=== PATIENT | female | born 1975 | race Caucasian/White ===

== ENCOUNTER 2017-12-29 19:09 | Inpatient (IN) | payer OTHER ==
[2017-12-29 21:54] LABS: Hematocrit 34.7 % (30.3-42.9); Hemoglobin 11.8 gm/dl (10.1-14.3); Mean Corpuscular HGB Conc 34 % (30-34); Mean Corpuscular Hemoglobin 29 pg (28-32); Mean Corpuscular Volume 84 fl (79-97); Platelet Count 157 K/mm3 (140-440); Red Blood Count 4.11 M/mm3 (3.65-5.03); Red Cell Distribution Width 16.1 % (13.2-15.2)
[2017-12-29 22:11] LABS: BUN/Creatinine Ratio 17; Blood Urea Nitrogen 12 mg/dL (7-17); Calcium 8.8 mg/dL (8.4-10.2); Hemolysis Index 1
[2017-12-29] MEDS: LACTATED RINGERS 1,000 ML IV SCH (22:18)
[2017-12-29] MEDS: BENADRYL IV SCH (22:19)
[2017-12-30] MEDS: LACTATED RINGERS 1,000 ML IV SCH ×2 (05:47→21:09)
[2017-12-30] MEDS: BENADRYL IV SCH ×3 (06:03→21:10)
[2017-12-30] MEDS ORDERED: HumuLIN R SUB-Q SCH ×2 (07:30→15:00)
[2017-12-30] MEDS ORDERED: TYLENOL PO PRN (09:06)
[2017-12-30] MEDS ORDERED: AMBIEN PO PRN (09:06)
[2017-12-30] MEDS ORDERED: COLACE PO PRN (09:06)
--- NOTE | 2017-12-30 09:25 | History and Physical Report ---
History of Present Illness Date of examination: 12/30/17 Date of admission: 12/29/17 19:09 Chief complaint: SIUP at 36 weeks and 4 days with pre-gest DM and uncontrolled glucose. History of present illness: Patient is a 42 years old , LMP 04/18/17, EDC 01/23/18 at 36 weeks and 4 days with a history of pre-gestational diabetes type 2 who was admitted for glucose control. She started PNC at [facility] and has been on max dose of glyburide. She was transferred to [facility] last week at 35+ weeks gestation due to uncontrolled glucose on the glyburide. Her fasting ran between 110-140's. Last week, she was given insulin but she has not started taking it. She has not been monitoring her glucose for over 9 days. She was seen at [facility] for the first time yesterday. sonogram showed an SIRIA of 22.4 , BPP 8/8, EFW 4072 gms (9 lbs). She was sent in for admission for glucose control. She reported occasional contractions. She reported good movement. tracing has been CAT 1. Cervix: closed/long/post. Past History Past Medical History: diabetes, other (anemia) Past Surgical History: no surgical history INTERVENTION NURSE History: fibroids, herpes Family/Genetic History: none Social history: no significant social history - Obstetrical History Expected Date of Delivery: 01/23/18 Actual Gestation: 36 Week(s) 4 Day(s) : 6 Para: 4 Spontaneous Abortions: 1 Number of Living Children: 4 Medications and Allergies Allergies Allergy/AdvReac Type Severity Reaction Status Date / Time No Known Allergies Allergy Verified 12/29/17 21:40 Active Meds: Active Medications Diphenhydramine HCl (Benadryl) 25 mg IV Q6H BRYAN Last Admin: 12/30/17 06:03 Dose: Not Given Lactated Ringer's (Lactated Ringers) 1,000 mls @ 125 mls/hr IV DIRECT BRYAN Last Admin: 12/30/17 05:47 Dose: 125 mls/hr Insulin Human NPH (Humulin N) 20 unit SUB-Q AC [facility] Last Admin: 12/30/17 08:11 Dose: 20 unit Insulin Human Regular (Humulin R) 10 units SUB-Q AC [facility] Last Admin: 12/30/17 08:10 Dose: 10 units - Vital Signs Vital signs: Vital Signs Temp 97.8 F 12/29/17 20:43 Temp Pulse Resp BP Pulse Ox 97.7 F 47 L 18 158/76 12/30/17 07:40 12/30/17 07:45 12/30/17 07:40 12/30/17 07:45 - Physical Exam Cardiovascular: Normal S1, Normal S2 Lungs: Positive: Clear to auscultation Vulva: both: normal Deep Tendon Reflex Grade: Normal +2 - Obstetrical FHR: category 1 Uterine Contraction Monitor Mode: External Cervical Dilatation: 0 Cervical Effacement Percentage: 0 station: -3 Uterine Contraction Pattern: Absent Results Result Diagrams: 12/29/17 20:20 12/29/17 20:20 Abnormal lab results 12/29/17 12/29/17 12/29/17 Range/Units 20:20 20:20 20:20 RDW 16.1 H (13.2-15.2) % Sodium 135 L (137-145) mmol/L Carbon Dioxide 18 L (22-30) mmol/L Glucose 177 H (65-100) mg/dL POC Glucose (70-105) TSH 6.320 H (0.270-4.200) mlU/mL 12/29/17 Range/Units 20:28 RDW (13.2-15.2) % Sodium (137-145) mmol/L Carbon Dioxide (22-30) mmol/L Glucose (65-100) mg/dL POC Glucose 176 H (70-105) TSH (0.270-4.200) mlU/mL All other labs normal. Assessment and Plan - Patient Problems (1) 36 weeks gestation of Current Visit: Yes Status: Acute (2) Diabetes Current Visit: Yes Status: Acute Qualifiers: Diabetes mellitus type: type 2 Plan to address problem: Admit to labor floor. Routine admitting labs. TSH and free T4. 24-hr urine for protein and Cr clearance. EKG FS fasting and 2-hr PP. Start ADA diet with 2200 calories. (3) Macrosomia Current Visit: Yes Status: Acute Plan to address problem: EFW 9 lbs. (4) Leiomyoma in , uterine, antepartum Current Visit: Yes Status: Acute Plan to address problem: Myoma measures 3.2 x 3.7 cm (anterior). (5) Uncontrolled blood glucose Current Visit: Yes Status: Acute Plan to address problem: Patient has been skipping meals. Random glucose was 78 last night. Will do FS fasting and 2-hr PP. Will start with insulin regimen with half calculated dose and increase it when pt starts eating her ADA diet. Will start sliding scale if needed. [facility] saw pt yesterday. Nutrition consult. (6) Itching Current Visit: Yes Status: Acute Plan to address problem: Rule out cholestasis of . Bile acid panel ordered. Benadryl for itching. (7) Herpes genitalia Current Visit: Yes Status: Acute Plan to address problem: Will start valtrex for prophylaxis.
[2017-12-30] MEDS ORDERED: PRENATAL VITAMIN PO SCH (10:00)
[2017-12-30 13:57] LABS: Uric Acid 5.1 mg/dL (3.5-7.6)
[2017-12-30] MEDS ORDERED: D50W (25GM) Syringe IV PRN (14:02)
--- NOTE | 2017-12-30 14:14 | Event Note ---
Date: 12/30/17 Assumed care of above. Patient seen, examined and chart reviewed. She was seen at [facility] for the first time yesterday. sonogram showed an SIRIA of 22.4 , BPP 8/8, EFW 4072 gms (9 lbs). She was sent in for admission for glucose control. She reported occasional contractions. She reported good movement. tracing has been CAT 1. No S/S of Pre-E at this time. Issues: -42 y/o at 36+4 wks -Pregestational DM - Poorly controlled -Non compliance - ?financial issues -Increasing BP - now ~ 150's/90's -Generalised Pruritis - ??Cholestasis -Elevated TSH and normal FT4 - ?Subclinical hypothyr - macrosomia - EFW 9 lbs or ~ 4000 gms -Mildly elevated transaminases -Cervix exam is 40/-4 -Cephalic confirmed by bedside sono -Armenian speaker only In view of above including non-compliance, plan at this point is to proceed with delivery. Reviewed with Dr. Manrique of [facility] Will start Mag and anti-HTN if BP enters severe range or symptoms arise
[2017-12-30 14:26] LABS: Hematocrit 36.2 % (30.3-42.9); Hemoglobin 11.8 gm/dl (10.1-14.3); Mean Corpuscular HGB Conc 33 % (30-34); Mean Corpuscular Hemoglobin 28 pg (28-32); Mean Corpuscular Volume 86 fl (79-97); Platelet Count 151 K/mm3 (140-440); Red Blood Count 4.23 M/mm3 (3.65-5.03); Red Cell Distribution Width 16.3 % (13.2-15.2)
[2017-12-30] MEDS ORDERED: ePHEDrine SULFATE IV PRN (14:26)
[2017-12-30] MEDS ORDERED: BRETHINE IVP PRN (14:26)
[2017-12-30] MEDS ORDERED: XYLOCAINE 2% INFILTRATI ONE (14:26)
[2017-12-30] MEDS ORDERED: MINERAL OIL PO PRN (14:26)
[2017-12-30] MEDS ORDERED: BRETHINE SUB-Q PRN (14:26)
[2017-12-30] MEDS ORDERED: ZOFRAN IV PRN (14:36)
[2017-12-30] MEDS ORDERED: PITOCin/NS 20 UNIT/1000ML DRIP 20 UNITS/1,000 ML BAG IV SCH (15:00)
[2017-12-30] MEDS ORDERED: PITOCin/NS 30 UNIT/500ML 30 UNITS/500 ML BAG IV SCH (15:00)
[2017-12-30 16:39] LABS: Bilirubin,Urine NEG (Negative); Blood,Urine MOD (Negative); Color,Urine Amber (Yellow); Mucus,Urine FEW /HPF; Protein,Urine <15 mg/dL mg/dL (Negative)
[2017-12-30] MEDS: PITOCin/NS 30 UNIT/500ML 30 UNITS/500 ML BAG IV SCH ×2 (17:50→18:28)
[2017-12-30] MEDS: SUBLIMAZE IV PRN (19:52)
[2017-12-31] MEDS: SUBLIMAZE IV PRN (03:29)
[2017-12-31] MEDS: LACTATED RINGERS 1,000 ML IV SCH ×3 (04:36→11:32)
--- NOTE | 2017-12-31 08:45 | Progress Note ---
Assessment and Plan - Patient Problems (1) 36 weeks gestation of Current Visit: Yes Status: Acute (2) Diabetes Current Visit: Yes Status: Acute Qualifiers: Diabetes mellitus type: type 2 Plan to address problem: Continue glucose mionitoring. Sliding scale. (3) Macrosomia Current Visit: Yes Status: Acute Plan to address problem: EFW 9 lbs. (4) Leiomyoma in , uterine, antepartum Current Visit: Yes Status: Acute Plan to address problem: Myoma measures 3.2 x 3.7 cm (anterior). (5) Uncontrolled blood glucose Current Visit: Yes Status: Acute Plan to address problem: Continue glucose monitoring and sliding scale. (6) Itching Current Visit: Yes Status: Acute Plan to address problem: Bile acid panel ordered. Result pending. Benadryl for itching. (7) Herpes genitalia Current Visit: Yes Status: Acute Plan to address problem: Will start valtrex for prophylaxis. Subjective - Subjective Date of service: 12/31/17 Principal diagnosis: SIUP at 36 weeks and 5 days with uncontroled diabetes, pre- eclampsia Interval history: Patient is a 42 years old , LMP 04/18/17, EDC 01/23/18 who is at 36 weeks and 5 days with a history of pre-gestational diabetes type 2 who was admitted for glucose control. She started PNC at [facility] and has been on max dose of glyburide. She was transferred to [facility] last week at 35+ weeks gestation due to uncontrolled glucose on the glyburide. Her fasting ran between 110-140's. Last week, she was given insulin but she has not started taking it. She has not been monitoring her glucose for over 9 days. She was seen at [facility] for the first time the day prior to her admission. Sonogram showed an SIRIA of 22.4, BPP 8/8, EFW 4072 gms (9 lbs). She was sent in for admission for glucose control. She reported occasional contractions. She reported good movement. tracing has been CAT 1. On admission, her cervix: closed/long/post. Her BP started to become elevated to the 150's/80's. Toxemia labs showed abnormalities. In light of the above findings, the patient was given magnesium sulfate and induced with pitocin. This AM, she reports feeling mild contractions. tracing is CAT1. Cervix: 4 cm/50-60's/floating. VTX presentation was confirmed with bedside ultrasound by the previous team. Objective - Vital Signs Vital Signs: Vital Signs - 12hr 12/30/17 12/30/17 12/30/17 20:43 20:48 20:49 Temperature Pulse Rate 48 L 68 Respiratory Rate Blood Pressure O2 Sat by Pulse 90 92 55 L Oximetry 12/30/17 12/30/17 12/30/17 21:06 21:58 21:59 Temperature 97.1 F L Pulse Rate 46 L 52 L 48 L Respiratory 20 Rate Blood Pressure 148/66 130/74 O2 Sat by Pulse 99 Oximetry 12/30/17 12/30/17 12/30/17 22:03 22:08 22:13 Temperature Pulse Rate 47 L 51 L 57 L Respiratory Rate Blood Pressure O2 Sat by Pulse 97 96 97 Oximetry 12/30/17 12/30/17 12/30/17 22:18 22:23 22:28 Temperature Pulse Rate 50 L 53 L 49 L Respiratory Rate Blood Pressure O2 Sat by Pulse 95 96 94 Oximetry 12/30/17 12/30/17 12/30/17 22:30 22:33 22:38 Temperature Pulse Rate 54 L 46 L 47 L Respiratory Rate Blood Pressure O2 Sat by Pulse 94 95 95 Oximetry 12/30/17 12/30/17 12/30/17 22:43 22:48 22:49 Temperature Pulse Rate 51 L 62 60 Respiratory Rate Blood Pressure O2 Sat by Pulse 95 95 86 Oximetry 12/30/17 12/31/17 12/31/17 23:01 02:22 02:28 Temperature 97.1 F L Pulse Rate 51 L 46 L Respiratory 22 Rate Blood Pressure 148/67 O2 Sat by Pulse 98 Oximetry 12/31/17 12/31/17 12/31/17 02:59 03:29 03:34 Temperature Pulse Rate 73 50 L Respiratory 20 Rate Blood Pressure 128/75 O2 Sat by Pulse 99 Oximetry 12/31/17 12/31/17 12/31/17 03:59 04:00 04:59 Temperature Pulse Rate 51 L 48 L Respiratory 18 Rate Blood Pressure 119/57 125/66 O2 Sat by Pulse Oximetry 12/31/17 12/31/17 12/31/17 06:01 06:21 06:26 Temperature Pulse Rate 46 L 55 L 57 L Respiratory Rate Blood Pressure 144/70 O2 Sat by Pulse 98 98 Oximetry 12/31/17 12/31/17 12/31/17 06:31 06:36 06:41 Temperature Pulse Rate 56 L 50 L 46 L Respiratory Rate Blood Pressure O2 Sat by Pulse 98 98 98 Oximetry 12/31/17 12/31/17 12/31/17 06:46 06:51 06:56 Temperature Pulse Rate 52 L 47 L 48 L Respiratory Rate Blood Pressure O2 Sat by Pulse 98 97 96 Oximetry 12/31/17 12/31/17 12/31/17 07:01 07:06 07:11 Temperature Pulse Rate 52 L 50 L 47 L Respiratory Rate Blood Pressure 121/58 O2 Sat by Pulse 96 96 96 Oximetry 12/31/17 12/31/17 12/31/17 07:16 07:21 07:22 Temperature 97.6 F Pulse Rate 50 L 59 L Respiratory Rate Blood Pressure O2 Sat by Pulse 96 96 Oximetry 12/31/17 12/31/17 07:26 08:00 Temperature Pulse Rate 64 47 L Respiratory Rate Blood Pressure 145/74 O2 Sat by Pulse 97 Oximetry - Exam Cardiovascular: Normal S1, Normal S2 Lungs: Clear to auscultation Vulva: both: normal FHR: category 1 Uterine Contraction Monitor Mode: External Cervical Dilatation: 4 Cervical Effacement Percentage: 50 station: -4 Uterine Contraction Pattern: Irregular Deep Tendon Reflex Grade: Normal +2 - Labs Labs: Abnormal Labs 12/29/17 12/29/17 12/29/17 20:20 20:20 20:20 RDW 16.1 H Sodium 135 L Carbon Dioxide 18 L Creatinine Glucose 177 H POC Glucose AST ALT Lactate Dehydrogenase TSH 6.320 H 12/29/17 12/30/17 12/30/17 20:28 10:49 12:25 RDW Sodium Carbon Dioxide Creatinine Glucose POC Glucose 176 H 123 H AST ALT 63 H Lactate Dehydrogenase TSH 12/30/17 12/30/17 12/30/17 12:25 14:02 14:21 RDW 16.3 H Sodium Carbon Dioxide Creatinine 0.6 L Glucose POC Glucose 116 H AST 78 H ALT Lactate Dehydrogenase 321 H TSH 12/31/17 01:00 RDW Sodium Carbon Dioxide Creatinine Glucose POC Glucose 67 L AST ALT Lactate Dehydrogenase TSH Laboratory Results - last 24 hr 12/30/17 12/30/17 12/30/17 10:49 12:25 12:25 WBC RBC Hgb Hct MCV MCH MCHC RDW Plt Count Creatinine 0.6 L Estimated GFR > 60 POC Glucose 123 H Uric Acid 5.1 AST 78 H ALT 63 H Lactate Dehydrogenase 321 H Urine Color Urine Turbidity Urine pH Ur Specific [place] Urine Protein Urine Glucose (UA) Urine Ketones Urine Blood Urine Nitrite Urine Bilirubin Urine Urobilinogen Ur Leukocyte Esterase Urine WBC (Auto) Urine RBC (Auto) U Epithel Cells (Auto) Urine Mucus Blood Type Antibody Screen 12/30/17 12/30/17 12/30/17 14:02 14:21 16:10 WBC 6.0 RBC 4.23 Hgb 11.8 Hct 36.2 MCV 86 MCH 28 MCHC 33 RDW 16.3 H Plt Count 151 Creatinine Estimated GFR POC Glucose 116 H Uric Acid AST ALT Lactate Dehydrogenase Urine Color Dayna Urine Turbidity Clear Urine pH 6.0 Ur Specific [place] 1.010 Urine Protein <15 mg/dl Urine Glucose (UA) Neg Urine Ketones Tr Urine Blood Mod Urine Nitrite Pos Urine Bilirubin Neg Urine Urobilinogen 4.0 Ur Leukocyte Esterase Neg Urine WBC (Auto) 4.0 Urine RBC (Auto) 5.0 U Epithel Cells (Auto) 2.0 Urine Mucus Few Blood Type Antibody Screen 12/30/17 12/30/17 12/31/17 16:20 18:36 01:00 WBC RBC Hgb Hct MCV MCH MCHC RDW Plt Count Creatinine Estimated GFR POC Glucose 91 67 L Uric Acid AST ALT Lactate Dehydrogenase Urine Color Urine Turbidity Urine pH Ur Specific [place] Urine Protein Urine Glucose (UA) Urine Ketones Urine Blood Urine Nitrite Urine Bilirubin Urine Urobilinogen Ur Leukocyte Esterase Urine WBC (Auto) Urine RBC (Auto) U Epithel Cells (Auto) Urine Mucus Blood Type O POSITIVE Antibody Screen Negative 12/31/17 06:51 WBC RBC Hgb Hct MCV MCH MCHC RDW Plt Count Creatinine Estimated GFR POC Glucose 85 Uric Acid AST ALT Lactate Dehydrogenase Urine Color Urine Turbidity Urine pH Ur Specific [place] Urine Protein Urine Glucose (UA) Urine Ketones Urine Blood Urine Nitrite Urine Bilirubin Urine Urobilinogen Ur Leukocyte Esterase Urine WBC (Auto) Urine RBC (Auto) U Epithel Cells (Auto) Urine Mucus Blood Type Antibody Screen - Results US- obstetric: report reviewed
[2017-12-31] MEDS: BENADRYL IV SCH ×2 (10:00→16:00)
--- NOTE | 2017-12-31 10:24 | Progress Note ---
Assessment and Plan A:IUP @ 36 5/7 Weeks Category I Tracing Active Labor DM II (uncontrolled) GBS Negative Maternal obesity P: AROM Internals X 2 Continue Pitocin Augmentation Sliding Scale for DM Management Subjective - Subjective Date of service: 12/31/17 Principal diagnosis: SIUP at 36 weeks and 5 days with uncontroled diabetes, pre- eclampsia Patient reports: movement normal, contractions Objective - Vital Signs Vital Signs: Vital Signs - 12hr 12/30/17 12/30/17 12/30/17 22:23 22:28 22:30 Temperature Pulse Rate 53 L 49 L 54 L Respiratory Rate Blood Pressure O2 Sat by Pulse 96 94 94 Oximetry 12/30/17 12/30/17 12/30/17 22:33 22:38 22:43 Temperature Pulse Rate 46 L 47 L 51 L Respiratory Rate Blood Pressure O2 Sat by Pulse 95 95 95 Oximetry 12/30/17 12/30/17 12/30/17 22:48 22:49 23:01 Temperature Pulse Rate 62 60 51 L Respiratory Rate Blood Pressure 148/67 O2 Sat by Pulse 95 86 Oximetry 12/31/17 12/31/17 12/31/17 02:22 02:28 02:59 Temperature 97.1 F L Pulse Rate 46 L 73 Respiratory 22 Rate Blood Pressure 128/75 O2 Sat by Pulse 98 Oximetry 12/31/17 12/31/17 12/31/17 03:29 03:34 03:59 Temperature Pulse Rate 50 L Respiratory 20 18 Rate Blood Pressure O2 Sat by Pulse 99 Oximetry 12/31/17 12/31/17 12/31/17 04:00 04:59 06:01 Temperature Pulse Rate 51 L 48 L 46 L Respiratory Rate Blood Pressure 119/57 125/66 144/70 O2 Sat by Pulse Oximetry 12/31/17 12/31/17 12/31/17 06:21 06:26 06:31 Temperature Pulse Rate 55 L 57 L 56 L Respiratory Rate Blood Pressure O2 Sat by Pulse 98 98 98 Oximetry 12/31/17 12/31/17 12/31/17 06:36 06:41 06:46 Temperature Pulse Rate 50 L 46 L 52 L Respiratory Rate Blood Pressure O2 Sat by Pulse 98 98 98 Oximetry 12/31/17 12/31/17 12/31/17 06:51 06:56 07:01 Temperature Pulse Rate 47 L 48 L 52 L Respiratory Rate Blood Pressure 121/58 O2 Sat by Pulse 97 96 96 Oximetry 12/31/17 12/31/17 12/31/17 07:06 07:11 07:16 Temperature Pulse Rate 50 L 47 L 50 L Respiratory Rate Blood Pressure O2 Sat by Pulse 96 96 96 Oximetry 12/31/17 12/31/17 12/31/17 07:21 07:22 07:26 Temperature 97.6 F Pulse Rate 59 L 64 Respiratory Rate Blood Pressure O2 Sat by Pulse 96 97 Oximetry 12/31/17 12/31/17 12/31/17 08:00 09:02 10:00 Temperature Pulse Rate 47 L 66 57 L Respiratory Rate Blood Pressure 145/74 135/76 141/80 O2 Sat by Pulse Oximetry - Exam Breasts: normal Cardiovascular: Regular rate Lungs: Clear to auscultation, Normal air movement Abdomen: Present: normal appearance, soft, normal bowel sounds Uterus: Present: normal, firm, fundal height above umbilicus FHR: category 1 Uterine Contraction Monitor Mode: External Cervical Dilatation: 4.5 (AROM of a large amount of clear fluid @ 0952) Cervical Effacement Percentage: 70 station: -2 Uterine Contraction Frequency (min): 2 Uterine Contraction Pattern: Regular Uterine Tone Measurement Phase: Resting Uterine Contraction Intensity: Moderate Extremities: normal - Labs Labs: Abnormal Labs 12/29/17 12/29/17 12/29/17 20:20 20:20 20:20 RDW 16.1 H Sodium 135 L Carbon Dioxide 18 L Creatinine Glucose 177 H POC Glucose AST ALT Lactate Dehydrogenase TSH 6.320 H 12/29/17 12/30/17 12/30/17 20:28 10:49 12:25 RDW Sodium Carbon Dioxide Creatinine Glucose POC Glucose 176 H 123 H AST ALT 63 H Lactate Dehydrogenase TSH 12/30/17 12/30/17 12/30/17 12:25 14:02 14:21 RDW 16.3 H Sodium Carbon Dioxide Creatinine 0.6 L Glucose POC Glucose 116 H AST 78 H ALT Lactate Dehydrogenase 321 H TSH 12/31/17 01:00 RDW Sodium Carbon Dioxide Creatinine Glucose POC Glucose 67 L AST ALT Lactate Dehydrogenase TSH Laboratory Results - last 24 hr 12/30/17 12/30/17 12/30/17 10:49 12:25 12:25 WBC RBC Hgb Hct MCV MCH MCHC RDW Plt Count Creatinine 0.6 L Estimated GFR > 60 POC Glucose 123 H Uric Acid 5.1 AST 78 H ALT 63 H Lactate Dehydrogenase 321 H Urine Color Urine Turbidity Urine pH Ur Specific [place] Urine Protein Urine Glucose (UA) Urine Ketones Urine Blood Urine Nitrite Urine Bilirubin Urine Urobilinogen Ur Leukocyte Esterase Urine WBC (Auto) Urine RBC (Auto) U Epithel Cells (Auto) Urine Mucus Blood Type Antibody Screen 12/30/17 12/30/17 12/30/17 14:02 14:21 16:10 WBC 6.0 RBC 4.23 Hgb 11.8 Hct 36.2 MCV 86 MCH 28 MCHC 33 RDW 16.3 H Plt Count 151 Creatinine Estimated GFR POC Glucose 116 H Uric Acid AST ALT Lactate Dehydrogenase Urine Color Dayna Urine Turbidity Clear Urine pH 6.0 Ur Specific [place] 1.010 Urine Protein <15 mg/dl Urine Glucose (UA) Neg Urine Ketones Tr Urine Blood Mod Urine Nitrite Pos Urine Bilirubin Neg Urine Urobilinogen 4.0 Ur Leukocyte Esterase Neg Urine WBC (Auto) 4.0 Urine RBC (Auto) 5.0 U Epithel Cells (Auto) 2.0 Urine Mucus Few Blood Type Antibody Screen 12/30/17 12/30/17 12/31/17 16:20 18:36 01:00 WBC RBC Hgb Hct MCV MCH MCHC RDW Plt Count Creatinine Estimated GFR POC Glucose 91 67 L Uric Acid AST ALT Lactate Dehydrogenase Urine Color Urine Turbidity Urine pH Ur Specific [place] Urine Protein Urine Glucose (UA) Urine Ketones Urine Blood Urine Nitrite Urine Bilirubin Urine Urobilinogen Ur Leukocyte Esterase Urine WBC (Auto) Urine RBC (Auto) U Epithel Cells (Auto) Urine Mucus Blood Type O POSITIVE Antibody Screen Negative 12/31/17 06:51 WBC RBC Hgb Hct MCV MCH MCHC RDW Plt Count Creatinine Estimated GFR POC Glucose 85 Uric Acid AST ALT Lactate Dehydrogenase Urine Color Urine Turbidity Urine pH Ur Specific [place] Urine Protein Urine Glucose (UA) Urine Ketones Urine Blood Urine Nitrite Urine Bilirubin Urine Urobilinogen Ur Leukocyte Esterase Urine WBC (Auto) Urine RBC (Auto) U Epithel Cells (Auto) Urine Mucus Blood Type Antibody Screen
[2017-12-31] MEDS ORDERED: ePHEDrine SULFATE IV PRN (11:58)
[2017-12-31] MEDS ORDERED: NARCAN 2 MG/2 ML IV PRN (11:58)
--- NOTE | 2017-12-31 11:58 | Anesthesia Consultation ---
Anesthesia Consult and Med Hx Date of service: 12/31/17 - Airway Anesthetic Teeth Evaluation: Good ROM Head & Neck: Adequate Mental/Hyoid Distance: Adequate Mallampati Class: Class II Intubation Access Assessment: Probably Good - Pre-Operative Health Status ASA Pre-Surgery Classification: ASA2 Proposed Anesthetic Plan: Epidural, Spinal - Pulmonary Hx Asthma: No - Cardiovascular System Hx Hypertension: No - Central Nervous System Hx Seizures: No Hx Psychiatric Problems: No - Endocrine Hx Renal Disease: No Hx Hypothyroidism: No Hx Hyperthyroidism: No - Hematic Hx Anemia: No Hx Sickle Cell Disease: No - Other Systems Hx Alcohol Use: No
[2017-12-31] MEDS ORDERED: HumuLIN R SUB-Q SCH (12:00)
[2017-12-31] MEDS ORDERED: fentaNYL-BUPIV 2 MCG/ML-0.125% 200 MCG/100 ML BAG EPIDURAL SCH (12:00)
[2017-12-31] MEDS ORDERED: BENADRYL PO PRN (15:50)
[2017-12-31] MEDS ORDERED: LANSINOH TP PRN (15:50)
[2017-12-31] MEDS ORDERED: PHENERGAN PR PRN (15:50)
[2017-12-31] MEDS ORDERED: TUCKS PAD TP PRN (15:50)
[2017-12-31] MEDS ORDERED: SODIUM CHLORIDE FLUSH SYRINGE 10 ML IV NR (16:00)
--- NOTE | 2017-12-31 16:02 | Procedure Note ---
OB Delivery Note - Delivery Date of Delivery: 12/31/17 (1522) Surgeon: SAJI GAINES Estimated blood loss: other (350) - Vaginal Delivery presentation: vertex Delivery position: OA Intrapartum events: other(please specify) (Uncontrolled diabetes) Delivery induction: oxytocin Delivery augmentation: rupture of membranes, pitocin Delivery monitor: internal FHT, internal uterine Route of delivery: Delivery placenta: spontaneous Delivery cord: 3 umbilical vessels Episiotomy: none Delivery laceration: none Anesthesia: epidural Delivery comments: of a live 8'12 male infant over a intact perineum under epidural anesthesia with Apgars of 3 and 7 at 1522 on 12/31/2017. Cord double clamped and cut by RONNY Gaines, code pink called due to color and respiratory effect, infant transferred to warmer. Multiple large blood clots passed with delivery of infant. Spontaneous delivery of placenta complete and intact with Tian side presenting at 1532. Fundus if firm and midline located 4 below the U. Lochia is scant. Cord blood gasses collected x2. Cord blood collected. Placenta to pathology. - Infant A at 1 minute: 3 at 5 minutes: 7 Gender: Male (8'12)
[2017-12-31] MEDS: MOTRIN PO SCH ×2 (16:57→22:12)
[2017-12-31] MEDS: NORMODYNE PO SCH (17:59)
[2017-12-31] MEDS ORDERED: MAGNESIUM SULFATE 4GM/100ML 4 GM/100 ML BAG IV ONE (18:00)
[2017-12-31] MEDS ORDERED: MAGNESIUM SULFATE 40GM/1000ML 40 GM/1,000 ML BAG IV SCH (18:00)
[2018-01-01] MEDS ORDERED: LACTATED RINGERS 1,000 ML IV SCH (01:00)
[2018-01-01 03:41] LABS: Hematocrit 32.2 % (30.3-42.9); Hemoglobin 10.4 gm/dl (10.1-14.3)
[2018-01-01] MEDS: MOTRIN PO SCH ×4 (06:10→21:33)
[2018-01-01] MEDS: NORMODYNE PO SCH (10:19)
--- NOTE | 2018-01-01 14:43 | Progress Note ---
Assessment and Plan - Patient Problems (1) 36 weeks gestation of Current Visit: Yes Status: Acute (2) Diabetes Current Visit: Yes Status: Acute Qualifiers: Diabetes mellitus type: type 2 Plan to address problem: Continue glucose monitoring. Sliding scale. ADA diet. Anticipate discharging her home tomorrow with insulin regimen and patient advised to follow up with her PCP for diabetic management. (3) Macrosomia Current Visit: Yes Status: Acute (4) Leiomyoma in , uterine, antepartum Current Visit: Yes Status: Acute Plan to address problem: Myoma measures 3.2 x 3.7 cm (anterior). (5) Uncontrolled blood glucose Current Visit: Yes Status: Acute Plan to address problem: Continue glucose monitoring and sliding scale. (6) Herpes genitalia Current Visit: Yes Status: Acute Plan to address problem: Valtrex was given for prophylaxis but pt did not have a chance to start it. (7) Cholestasis during , antepartum Current Visit: Yes Status: Acute (8) (normal spontaneous vaginal delivery) Current Visit: Yes Status: Acute Plan to address problem: Continue routine PP care. May discharge home tomorrow. Subjective - Subjective Principal diagnosis: S/P at 36 weeks, pre-gest DM, pre-eclampsia. Interval history: Patient is a 42 years old who is S/P , PPD#1. She has a history of pre-gestational diabetes type 2 with uncontrolled glucose and cholestasis of diagnosed after her admission. Labor was induced with pitocin. She developed pre-eclampsia during labor and was treated with magnesium sulfate. Labetolol PO was also given for BP control. Magnesium was discontinued today. Her BP has been stable. She has been on a sliding scale. She denies any complaint at this time. Objective - Vital Signs Latest vital signs: Vital Signs Temp Pulse Resp BP BP Pulse Ox 01/01/18 12:14 58 L 18 100/58 01/01/18 12:01 97.0 F L 60 18 102/63 100 01/01/18 12:00 18 01/01/18 10:47 55 L 100 01/01/18 10:19 53 L 106/59 01/01/18 08:24 62 96 01/01/18 08:23 98.0 F 62 18 98/54 96 01/01/18 06:00 98.4 F 71 16 118/79 01/01/18 04:00 98.4 F 71 18 103/78 01/01/18 02:00 98.7 F 69 18 114/78 01/01/18 00:00 98.6 F 77 16 118/68 12/31/17 22:30 98.7 F 66 18 126/66 12/31/17 20:00 98 F 60 18 121/69 98 12/31/17 19:40 64 116/65 12/31/17 19:38 62 100 12/31/17 19:35 59 L 127/71 12/31/17 19:33 65 100 12/31/17 19:30 56 L 126/67 12/31/17 19:28 61 100 12/31/17 19:25 60 119/59 12/31/17 19:23 62 100 12/31/17 19:20 61 127/59 12/31/17 19:18 61 100 12/31/17 19:15 59 L 121/57 12/31/17 19:13 65 96 12/31/17 19:10 56 L 134/74 12/31/17 19:08 65 97 12/31/17 19:05 67 131/74 12/31/17 19:03 63 97 12/31/17 19:00 64 127/72 12/31/17 18:58 67 99 12/31/17 18:55 62 127/74 12/31/17 18:53 85 12/31/17 18:50 70 126/73 88 12/31/17 18:48 70 98 12/31/17 18:45 75 127/72 12/31/17 18:43 73 97 12/31/17 18:41 53 L 54 L 12/31/17 18:40 80 134/70 12/31/17 18:38 61 87 12/31/17 18:36 64 131/61 12/31/17 18:35 78 92 12/31/17 18:33 71 98 12/31/17 18:30 65 142/81 12/31/17 18:28 61 98 12/31/17 18:25 62 148/82 12/31/17 18:23 74 0 L 12/31/17 18:20 65 139/77 12/31/17 18:18 60 100 12/31/17 18:15 53 L 140/73 12/31/17 18:13 63 100 12/31/17 18:10 55 L 145/73 12/31/17 18:08 44 L 100 12/31/17 18:07 98.2 F 12/31/17 18:03 52 L 99 12/31/17 17:59 52 L 155/83 12/31/17 17:58 52 L 98 12/31/17 17:53 57 L 97 12/31/17 17:48 57 L 98 12/31/17 17:44 52 L 161/78 12/31/17 17:43 46 L 98 12/31/17 17:38 41 L 98 12/31/17 17:33 49 L 98 12/31/17 17:29 58 L 162/80 12/31/17 17:28 59 L 98 12/31/17 17:23 47 L 99 12/31/17 17:20 59 L 173/75 12/31/17 17:18 66 100 12/31/17 17:15 61 193/77 86 12/31/17 17:13 62 100 12/31/17 17:08 44 L 98 12/31/17 17:04 45 L 166/77 12/31/17 17:00 98.2 F 43 L 16 187/75 12/31/17 16:50 46 L 100 12/31/17 16:48 93 12/31/17 16:45 44 L 97 12/31/17 16:40 52 L 99 12/31/17 16:35 49 L 100 12/31/17 16:30 54 L 158/73 12/31/17 16:25 53 L 99 12/31/17 16:20 53 L 97 12/31/17 16:15 47 L 98 12/31/17 16:14 46 L 156/69 12/31/17 16:10 51 L 98 12/31/17 16:05 51 L 98 12/31/17 16:02 97.8 F 54 L 18 156/71 12/31/17 16:00 62 99 12/31/17 15:59 52 L 144/67 12/31/17 15:44 52 L 138/58 12/31/17 15:30 63 142/64 12/31/17 15:23 12 L 12/31/17 15:18 58 L 85 12/31/17 15:16 60 100 12/31/17 15:15 53 L 149/83 12/31/17 15:12 56 L 86 12/31/17 15:11 57 L 98 12/31/17 15:06 59 L 100 12/31/17 15:05 63 53 L 12/31/17 15:01 56 L 96 12/31/17 14:59 61 82 L 12/31/17 14:56 58 L 97 12/31/17 14:51 86 12/31/17 14:50 20 12/31/17 14:46 58 L 97 12/31/17 14:45 57 L 138/67 12/31/17 14:41 56 L 98 Intake and Output 12/31/17 01/01/18 01/01/18 23:59 07:59 15:59 Intake Total 500 Output Total 1400 3000 1900 Balance -1400 -2500 -1900 Intake: Oral 200 Intake, Free Water 300 Output: Urine 1400 3000 1900 Indwelling Catheter 1400 3000 1900 Other: Total, Intake Amount 200 Total, Output Amount 1400 1400 1900 - Exam Narrative Exam: Abd: soft, NT. Uterus firm. Perineum: normal lochia. Ext: mild edema, no calf TN, no Philip's sign. Cardiovascular: Present: Normal S1, Normal S2 Lungs: Present: Clear to auscultation Vulva: both: normal Deep Tendon Reflex Grade: Normal +2 - Labs Labs: Abnormal lab results 12/31/17 12/31/17 12/31/17 Range/Units 15:59 16:03 22:19 POC ABG pH 7.284 L 7.227 L (7.35-7.45) POC ABG pCO2 45.6 H 56.7 H (35-45) POC ABG pO2 14 L 10 L (80-105) POC Glucose 167 H (70-105) Magnesium (1.7-2.3) mg/dL 01/01/18 01/01/18 01/01/18 Range/Units 00:42 06:50 07:57 POC ABG pH (7.35-7.45) POC ABG pCO2 (35-45) POC ABG pO2 (80-105) POC Glucose 107 H (70-105) Magnesium 4.70 H 5.80 H (1.7-2.3) mg/dL 08/09/18 Range/Units 10:55 POC ABG pH (7.35-7.45) POC ABG pCO2 (35-45) POC ABG pO2 (80-105) POC Glucose 184 H (70-105) Magnesium (1.7-2.3) mg/dL
[2018-01-01] MEDS ORDERED: HumuLIN R SUB-Q SCH (16:30)
[2018-01-02] MEDS: MOTRIN PO SCH ×2 (03:00→13:40)
[2018-01-02] MEDS: NORCO 5/325 PO PRN ×2 (06:22→13:40)
[2018-01-02] MEDS: NORMODYNE PO SCH ×2 (13:00)
[2018-01-02 16:25] VITALS: BP 129/52
--- NOTE | 2018-01-02 17:19 | Progress Note ---
Assessment and Plan PPD# 2 s/p -Doing well P: -Will D/C home -F/u next week for BP check - Patient Problems (1) (normal spontaneous vaginal delivery) Current Visit: Yes Status: Acute Subjective - Subjective Date of service: 01/02/18 Principal diagnosis: PPD#2 at 36 weeks, pre-gest DM, pre-eclampsia. Interval history: Patient seen and examined. Stable. Some nausea but no vomiting No chest pain or SOB. BP well controlled. Appropriate luchial flow Patient reports: appetite normal, voiding normally, dizzy ambulation, pain well controlled, flatus, ambulating normally, nauseated : doing well Objective - Vital Signs Latest vital signs: Vital Signs Temp Pulse Resp BP BP Pulse Ox 01/02/18 15:41 98.4 F 18 129/52 01/02/18 15:40 66 01/02/18 11:15 98.6 F 67 18 130/66 100 01/02/18 07:19 97.2 F L 44 L 18 114/54 97 01/02/18 00:00 97.6 F 60 16 107/79 107/79 01/01/18 21:34 55 L 129/71 Intake and Output 01/02/18 01/02/18 01/02/18 07:59 15:59 23:59 Output Total 500 Balance -500 Output: Urine 500 Void 500 Other: Total, Output Amount 500 # Voids Void 1 - Exam Abdomen: Present: normal appearance, soft. Absent: distention, tenderness, guarding, rigidity Uterus: Present: fundal height below umbilicus. Absent: tenderness - Labs Labs: Abnormal lab results 01/02/18 01/02/18 Range/Units 11:26 16:34 POC Glucose 143 H 162 H (70-105)
[2018-01-02] MEDS ORDERED: PHENERGAN ONE (17:25)
[2018-01-02] MEDS ORDERED: PHENERGAN PO PRN (17:25)
--- NOTE | 2018-01-02 17:26 | Discharge Summary ---
Providers - Providers Date of Admission: 12/30/17 09:06 Date of discharge: 01/02/18 Attending physician: KIRA YUN MD Primary care physician: KIRA YUN MD Hospitalization Reason for admission: IUP - (at 36+4 wks), observation Delivery: Episiotomy: none Laceration: none Other procedures: none Discharge diagnosis: other (Pre-eclampsia, GDM, Cholestasis of ), delivery Verner baby: male Hospital course: 42 y/o at 36+4 wks admitted from clinic. She was seen at [facility] for the first time yesterday. sonogram showed an SIRIA of 22.4, BPP 8/8, EFW 4072 gms (9 lbs). She was sent in for admission for glucose control. She reported occasional contractions. She reported good movement. tracing has been CAT 1. No S/S of Pre-E at this time. Issues: -42 y/o at 36+4 wks -Pregestational DM - Poorly controlled -Non compliance - ?financial issues -Increasing BP - now ~ 150's/90's -Generalised Pruritis - ??Cholestasis -Elevated TSH and normal FT4 - ?Subclinical hypothyr - macrosomia - EFW 9 lbs or ~ 4000 gms -Mildly elevated transaminases -Cervix exam is 2/40/-4 -Cephalic confirmed by bedside sono -Algerian speaker only In view of above including non-compliance, plan at this point is to proceed with delivery. Reviewed with Dr. Manrique of [facility] Will start Mag and anti-HTN if BP enters severe range or symptoms arise course complicated by Pre-E with severe BP's requiring magnesium. She was then started on Labetalol with good control. She is D/Romeo on PPD# 1 in stable condition. Condition at discharge: Good Disposition: DC-01 TO HOME OR SELFCARE - Discharge Diagnoses (1) (normal spontaneous vaginal delivery) Status: Acute (2) Diabetes Status: Acute Qualifiers: Diabetes mellitus type: type 2 Plan - Discharge Medications Prescriptions: Acetaminophen [Tylenol] 325 mg PO Q6HR PRN #30 tablet PRN Reason: Pain Labetalol [Normodyne TAB] 200 mg PO BID #60 tablet Multivitamin with Iron [Multivitamins with Iron] 1 each PO DAILY #30 tablet - Provider Discharge Summary Activity: no sex for 6 weeks, no heavy lifting 4 weeks, no strenuous exercise Diet: routine Additional instructions: [] Smoking cessation referral if applicable(refer to patient education folder for contact #) [] Refer to [facility]'s [facility] Booklet Call your doctor immediately for: * Fever > 100.5 * Heavy vaginal bleeding ( >1 pad per hour) * Severe persistent headache * Shortness of breath * Reddened, hot, painful area to leg or breast * Drainage or odor from incision. * Keep incision clean and dry at all times and follow doctor's instructions regarding bathing/showering - Follow up plan Follow up: KIRA YUN MD [Primary Care Provider] - 7 Days (Needs BP check next week)
== END 2018-01-02 21:00 | disposition home or self-care (01) | DRG 774 ==
LOC: LD 19:09 → INTOOBSV 19:09 → OBSVTOIN 12-30 09:06 → LD 12-30 09:59 → OB 12-31 20:04
PROVIDERS: ADMIT Obstetrics & Gynecology; ATTEND Obstetrics & Gynecology
PROC: 10E0XZZ Delivery of Products of Conception, External Approach (ICD-10-PCS; principal; 2017-12-31)
PROC: 3E033VJ Introduction of Other Hormone into Peripheral Vein, Percutaneous Approach (ICD-10-PCS; 2017-12-31)
PROC: 3E0R3BZ Introduction of Anesthetic Agent into Spinal Canal, Percutaneous Approach (ICD-10-PCS; 2017-12-31)
PROC: 00HU33Z Insertion of Infusion Device into Spinal Canal, Percutaneous Approach (ICD-10-PCS; 2017-12-31)
PROC: 4A033R1 Measurement of Arterial Saturation, Peripheral, Percutaneous Approach (ICD-10-PCS; 2017-12-31)
DX: O24.429 Gestational diabetes mellitus in childbirth, unspecified control (principal); O98.32 Other infections with a predominantly sexual mode of transmission complicating childbirth; O60.13X0 Preterm labor second trimester with preterm delivery third trimester, not applicable or unspecified; K83.1 Obstruction of bile duct; O26.62 Liver and biliary tract disorders in childbirth; O26.893 Other specified pregnancy related conditions, third trimester; O36.63X0 Maternal care for excessive fetal growth, third trimester, not applicable or unspecified; E02 Subclinical iodine-deficiency hypothyroidism; O75.89 Other specified complications of labor and delivery; R74.0 Nonspecific elevation of levels of transaminase and lactic acid dehydrogenase [LDH]; O34.13 Maternal care for benign tumor of corpus uteri, third trimester; A60.00 Herpesviral infection of urogenital system, unspecified; O99.214 Obesity complicating childbirth; E66.9 Obesity, unspecified; O11.4 Pre-existing hypertension with pre-eclampsia, complicating childbirth; Z3A.36 36 weeks gestation of pregnancy; Z37.0 Single live birth; Z91.14 Patient's other noncompliance with medication regimen; Z68.33 Body mass index [BMI] 33.0-33.9, adult
CPT/HCPCS: 36415; 80048; 81001; 82239; 82565; 82803; 82962; 83615; 83735; 84439; 84443; 84450; 84460; 84550; 85014; 85018; 85027; 86592; 86850; 86900; 86901; 88307; 93005; 93010; G0378; G0379; J1200; J1815; J2405; J2590; J3010; J3475; J7120; Q0169